=== PATIENT | male | born 1965 | race Caucasian/White ===

== ENCOUNTER 2017-01-11 01:33 | Emergency (ER) | payer BC ==
--- NOTE | 2017-01-11 01:55 | EDM.PDOC ---
ED HPI GENERAL MEDICAL PROBLEM - General Chief Complaint: Skin Complaint Stated Complaint: LEFT FOOT PAIN Time Seen by Provider: 01/11/17 01:54 Source of Information: Reports: Patient - History of Present Illness INITIAL COMMENTS - FREE TEXT/NARRATIVE: HISTORY AND PHYSICAL: History of present illness: []Patient presents with cellulitis and drainage affecting his left foot mainly third fourth and fifth toes, he has been dealing with this for over 6 months she has been on multiple medication regimens, he follows with Dr. Gutierrez general practitioner in [place] as well as as has seen dermatology Patient has a history of melanoma that was removed from his right foot previously, I recommended due to the duration of symptoms multiple treatments to consider a biopsy of these lesions on his toe involved been unusual place for melanoma No fever nausea vomiting chills sweats His main complaint is 8 out of 10 pain on inability to sleep secondary to pain Review of systems: As per history of present illness and below otherwise all systems reviewed and negative. Past medical history: As per history of present illness and as reviewed below otherwise noncontributory. Surgical history: As per history of present illness and as reviewed below otherwise noncontributory. Social history: No reported history of drug or alcohol abuse. Family history: As per history of present illness and as reviewed below otherwise noncontributory. Physical exam: HEENT: Atraumatic, normocephalic, pupils reactive, negative for conjunctival pallor or scleral icterus, mucous membranes moist, throat clear, neck supple, nontender, trachea midline. Lungs: Clear to auscultation, breath sounds equal bilaterally, chest nontender. Heart: S1S2, regular, negative for clicks, rubs, or JVD. Abdomen: Soft, nondistended, nontender. Negative for masses or hepatosplenomegaly. Negative for costovertebral tenderness. Pelvis: Stable nontender. Genitourinary: Deferred. Rectal: Deferred. Extremities: Atraumatic, negative for cords or calf pain. Neurovascular unremarkable. Neuro: Awake, alert, oriented. Cranial nerves II through XII unremarkable. Cerebellum unremarkable. Motor and sensory unremarkable throughout. Exam nonfocal. Skin as per history of present illness otherwise unremarkable Diagnostics: []Previous culture growing out Pseudomonas and strep One culture tonight Therapeutics: []Cr[employer] No. 20 to use for severe pain Follow-up with primary care and consider biopsy of these lesions Impression: []Chronic cellulitis and infection of left foot/toes History of melanoma Definitive disposition and diagnosis as appropriate pending reevaluation and review of above. Left Feet Pain Score (Numeric/FACES): 10 - Related Data Allergies Allergy/AdvReac Type Severity Reaction Status Date / Time No Known Allergies Allergy Verified 01/11/17 01:45 Home Meds: Home Meds . [No Known Home Meds] 06/14/14 [History] Past Medical History HEENT History: Reports: None Cardiovascular History: Reports: None Respiratory History: Reports: None Gastrointestinal History: Reports: GERD Genitourinary History: Reports: None Musculoskeletal History: Reports: None Neurological History: Reports: None Psychiatric History: Reports: None Endocrine/Metabolic History: Reports: None Hematologic History: Reports: None Immunologic History: Reports: None Oncologic (Cancer) History: Reports: None Dermatologic History: Reports: Melanoma - Infectious Disease History Infectious Disease History: Reports: Chicken Pox - Past Surgical History Head Surgeries/Procedures: Reports: None HEENT Surgical History: Reports: Tonsillectomy Dermatological Surgical History: Reports: Other (See Below) Social & Family History - Family History Family Medical History: Noncontributory - Tobacco Use Smoking Status *Q: Current Every Day Smoker Years of Tobacco use: 30 Packs/Tins Daily: 1 - Caffeine Use Caffeine Use: Reports: Coffee - Alcohol Use Days Per Week of Alcohol Use: 3 Number of Drinks Per Day: 3 Total Drinks Per Week: 9 - Recreational Drug Use Recreational Drug Use: No ED ROS GENERAL - Review of Systems Review Of Systems: ROS reveals no pertinent complaints other than HPI. ED EXAM, SKIN/RASH Exam: See Below Course - Vital Signs Last Recorded V/S: Last Vital Signs Temp 36.5 C 01/11/17 01:44 Pulse 87 01/11/17 01:44 Resp 18 01/11/17 01:44 BP 143/101 H 01/11/17 01:44 Pulse Ox 95 01/11/17 01:44 - Orders/Labs/Meds Orders: Active Orders 24 hr Category Date Time Status CULTURE WOUND [RM] Stat Lab 01/11/17 01:55 Received Departure - Departure Time of Disposition: 02:08 Disposition: Home, Self-Care 01 Condition: Fair Clinical Impression: Cellulitis, History of melanoma - Discharge Information Forms: ED Department Discharge Additional Instructions: Follow-up with your primary care doctor Matt Rowe on as scheduled Medication as prescribed for pain control No driving or operating heavy equipment narcotic pain medicine Strongly recommend biopsy of the lesions with your history of melanoma, even though this is an unusual site, due to the chronic nature and multiple treatment modalities I recommend a biopsy of the infected lesions on the left foot The following information is given to patients seen in the emergency department who are being discharged to home. This information is to outline your options for follow-up care. We provide all patients seen in our emergency department with a follow-up referral. The need for follow-up, as well as the timing and circumstances, are variable depending upon the specifics of your emergency department visit. If you don't have a primary care physician on staff, we will provide you with a referral. We always advise you to contact your personal physician following an emergency department visit to inform them of the circumstance of the visit and for follow-up with them and/or the need for any referrals to a consulting specialist. The emergency department will also refer you to a specialist when appropriate. This referral assures that you have the opportunity for follow-up care with a specialist. All of these measure are taken in an effort to provide you with optimal care, which includes your follow-up. Under all circumstances we always encourage you to contact your private physician who remains a resource for coordinating your care. When calling for follow-up care, please make the office aware that this follow-up is from your recent emergency room visit. If for any reason you are refused follow-up, please contact the [facility] emergency department at and asked to speak to the emergency department charge nurse. - My Orders Last 24 Hours: My Active Orders 01/11/17 01:55 CULTURE WOUND [RM] Stat - Assessment/Plan Last 24 Hours: My Active Orders 01/11/17 01:55 CULTURE WOUND [RM] Stat
[2017-01-11 02:28] VITALS: BP 144/95
== END 2017-01-11 02:25 | disposition home or self-care (01) ==
LOC: MW.ED 01:33
DX: L03.116 Cellulitis of left lower limb (principal); F17.210 Nicotine dependence, cigarettes, uncomplicated; K21.9 Gastro-esophageal reflux disease without esophagitis; Z98.890 Other specified postprocedural states; Z85.820 Personal history of malignant melanoma of skin
CPT/HCPCS: 87070; 87077; 87186; 99283